=== PATIENT | female | born 1965 | race Two or more races ===

== ENCOUNTER → 2021-01-11 11:17 | Outpatient (CLI) | payer OTHER ==
[~2021-01-11 11:17] MED LIST: COLACE100 MG PO; LEVOTHYROXINE25 MCG PO
== END | disposition home or self-care (01) ==
LOC: EKG 11:17
PROVIDERS: ATTEND Specialist
DX: Z01.810 Encounter for preprocedural cardiovascular examination (principal)

== ENCOUNTER 2021-01-18 11:15 | Inpatient (IN) | payer OTHER ==
[~2021-01-18] VITALS: Ht 167.6 cm; Wt 90.7 kg
[2021-01-19] MEDS ORDERED: LEVOTHYROXINE25 MCG PO (13:00)
[2021-01-27] MEDS ORDERED: COLACE100 MG PO (07:24)
== END 2021-01-27 08:52 | disposition home or self-care (01) | DRG 743 ==
LOC: O/R 01-22 05:30 → SURH 01-22 09:00 → OB/GYN 01-22 13:19
PROVIDERS: ADMIT Specialist; ATTEND Specialist
PROC: 0JQC0ZZ Repair Pelvic Region Subcutaneous Tissue and Fascia, Open Approach (ICD-10-PCS; 2021-01-22)
PROC: 0UT97ZZ Resection of Uterus, Via Natural or Artificial Opening (ICD-10-PCS; principal; 2021-01-22 09:00)
DX: N81.3 Complete uterovaginal prolapse (principal); N72 Inflammatory disease of cervix uteri; N80.0 Endometriosis of uterus; D25.1 Intramural leiomyoma of uterus; E03.8 Other specified hypothyroidism; E11.9 Type 2 diabetes mellitus without complications; N89.4 Leukoplakia of vagina